=== PATIENT | male | born 1995 ===

== ENCOUNTER 2017-10-10 15:03 | Emergency (ER) | payer MEDICAID, OTHER ==
[2017-10-10 15:22] VITALS: BMI 25.0
[2017-10-10 15:25] VITALS: BP 145/75; PULSE 80; TEMP 97.7; O2SAT 98
--- NOTE | 2017-10-10 15:27 | ED PDOC ---
Arrival/HPI - General Chief Complaint: Cough, Cold, Congestion Time Seen by Provider: 10/10/17 15:04 Historian: Patient - History of Present Illness Narrative History of Present Illness (Text): 10/10/17 15:31 Patient is a 22 M with a history of asthma presenting with complaints of increased shortness of breath this past week. Patient states he notices it in the morning when he wakes up uses his nebulizer treatment but when he returns home he has the symptoms again. Due to difficulty breathing upon waking up this morning patient's mother contacted PMD Dr. Ardon who recommended Emergency department for Chest X-ray. Patient states that he currently is breathing well. Denies current shortness of breath, wheezing, fevers, chills, chest pain, nausea , vomiting, diarrhea. Time/Duration: Prior to Arrival Symptom Onset: Gradual Context: Home Past Medical History - Provider Review Nursing Documentation Reviewed: Yes - Pulmonary Hx Asthma: Yes - Psychiatric Hx Substance Use: No - Anesthesia Hx Anesthesia: No Family/Social History - Physician Review Nursing Documentation Reviewed: Yes Family/Social History: No Known Family HX Smoking Status: Never Smoked Hx Alcohol Use: No Hx Substance Use: No Allergies/Home Meds Allergies/Adverse Reactions: Allergies No Known Allergies Allergy (Verified 10/10/17 15:10) Review of Systems - Physician Review All systems were reviewed & negative as marked: Yes - Review of Systems Constitutional: Normal. absent: Fatigue, Fevers Eyes: Normal ENT: Normal Respiratory: SOB, Cough, Sputum Cardiovascular: absent: Chest Pain, Palpitations Gastrointestinal: absent: Abdominal Pain, Diarrhea, Nausea, Vomiting Genitourinary Male: absent: Dysuria Musculoskeletal: Normal Skin: Normal. absent: Rash Neurological: absent: Headache, Dizziness Endocrine: Normal Hemo/Lymphatic: Normal Psychiatric: Normal. absent: Anxiety Physical Exam Vital Signs Reviewed: Yes Vital Signs Temp Pulse Resp BP Pulse Ox 10/10/17 15:24 97.7 F 80 20 145/75 98 Temperature: Afebrile Blood Pressure: Normal Pulse: Regular Respiratory Rate: Normal Appearance: Positive for: Well-Appearing, Non-Toxic, Comfortable Pain Distress: None Mental Status: Positive for: Alert and Oriented X 3 - Systems Exam Head: Present: Atraumatic, Normocephalic Pupils: Present: PERRL Extroacular Muscles: Present: EOMI Conjunctiva: Present: Normal Mouth: Present: Moist Mucous Membranes Neck: Present: Normal Range of Motion Respiratory/Chest: Present: Clear to Auscultation. No: Accessory Muscle Use, Wheezes, Rhonchi Cardiovascular: Present: Regular Rate and Rhythm, Normal S1, S2 Abdomen: No: Tenderness, Distention Upper Extremity: Present: Normal Inspection Lower Extremity: Present: Normal Inspection Neurological: Present: GCS=15, CN II-XII Intact, Speech Normal Skin: Present: Warm, Normal Color. No: Rashes Psychiatric: Present: Alert, Oriented x 3 Medical Decision Making ED Course and Treatment: 10/10/17 15:30 Chest X-ray Discharge with medrol dose pack and albuterol - RAD Interpretation Radiology Orders: 10/10/17 15:22 CHEST TWO VIEWS (PA/LAT) [RAD] [employer] Operator: ED Physician, Radiologist Disposition/Present on Arrival - Present on Arrival Any Indicators Present on Arrival: No History of DVT/PE: No History of Uncontrolled Diabetes: No Urinary Catheter: No History of Decub. Ulcer: No History Surgical Site Infection Following: None - Disposition Have Diagnosis and Disposition been Completed?: Yes Diagnosis: Asthma due to seasonal allergies Disposition: HOME/ ROUTINE Disposition Time: 16:29 Patient Plan: Discharge Condition: GOOD Additional Instructions: Mr. Ross, thank you for letting us take care of you today.The emergency medical care you received today was directed at your acute symptoms. If you were prescribed any medication, please fill it and take as directed. It may take several days for your symptoms to resolve. Return to the Emergency Department if your symptoms worsen, do not improve, or if you have any other problems. Please contact your doctor or call one of the physicians/clinics you have been referred to that are listed on the Patient Visit Information form that is included in your discharge packet. Bring any paperwork you were given at discharge with you along with any medications you are taking to your follow up visit. Our treatment cannot replace ongoing medical care by a primary care provider (PCP) outside of the emergency department. Thank you for allowing the [facility] team to be part of your care today. If you had an X-Ray or CT scan: A Radiologist will review the ED reading if any change in treatment is needed we will contact you. If you had a blood, urine, or wound culture: It will take several days for the results, if any change in treatment is needed we will contact you. If you had an STI test: It will take 48 hours for the results. Please call after 1 week if you have not heard back. Prescriptions: Albuterol HFA [Ventolin HFA 90 mcg/actuation (8 g)] 1 puff IH PRN PRN #1 inhaler PRN Reason: Shortness Of Breath Methylprednisolone [Medrol Dose Pack (21 tabs)] 4 mg PO DAILY #21 mg Referrals: Scar Ardon, [Primary Care Provider] - Follow up with primary Forms: [facility] ([place]ian)
--- NOTE | 2017-10-10 16:03 | RAD ---
HISTORY: dyspnea h/o asthma and recent URI COMPARISON: No prior. TECHNIQUE: Chest PA and lateral FINDINGS: LUNGS: No active pulmonary disease. PLEURA: No significant pleural effusion identified. No pneumothorax apparent. CARDIOVASCULAR: Normal. OSSEOUS STRUCTURES: No significant abnormalities. VISUALIZED UPPER ABDOMEN: Normal. OTHER FINDINGS: None. IMPRESSION: No active disease.
[2017-10-10 16:35] VITALS: RESP 18
== END 2017-10-10 16:34 | disposition home or self-care (01) ==
LOC: ED 15:03
DX: J45.909 Unspecified asthma, uncomplicated (principal)